=== PATIENT | female | born 1960 | race Caucasian/White ===

== ENCOUNTER 2016-07-18 09:48 | Day surgery (SDC) | payer OTHER ==
[2016-07-18] VITALS (9 sets, daily range): BP systolic 103–145; BP diastolic 53–88; PULSE 63–106; RESP 13–21; O2SAT 96–100
[~2016-07-18] VITALS: Ht 162.6 cm; Wt 109.9 kg
--- NOTE | 2016-07-18 08:50 | PCM.HPANE ---
Patient Data Surgeon Admitting Provider: Attending Provider:Olu Mead DO Primary Care Physician:Mitchell Other Provider:Gui William Anesthesia Reason for Visit Right De Quervains Tenosynovitis Ht/WT & BMI Height (Feet): 5 Height (Inches): 4 Weight (Kilograms): 110.767 Body Mass Index 41.00 Allergies Coded Allergies: Penicillins (Verified Allergy, Severe, FULL BODY RASH, 07/14/16) Past Anesthesia History Anesthesia History: Denies:: Anesthesia Reactions, Malignant Hyperthermia Diabetes History Hx Diabetes?: No MRSA MRSA: No Medications Reported Medications Cholecalciferol (Vitamin D3) (Vitamin D)1,000 Unit Capsule5,000 Unit PO DAILY # 1 BOTTLE Ref 0 07/14/16 Multivitamin (Multi Vitamin Daily)1 Each Tablet1 Each PO DAILY 30 Days Ref 0 07/14/16 Cyclosporine (Restasis)1 Each Droperette1 Each AFFECT_EYE BID 07/14/16 Carboxymethylcellulos/Glycerin (Refresh Optive Eye Drops)15 Ml Drops1-2 Drop AFFECT_EYE BID 07/14/16 History History of ENT Problems?: Yes HEENT History: Denies:: Glaucoma (HX DRY EYES) Other HEENT Pertinent History: S/P TONSILLECOMY,WISDOM TEETH EXTRACTIONS Hx of Heart Problems?: Yes Cardiovascular History: Positive for:: Irregular Heartbeat (PALPITATIONS-1 BOUT "RACING" HEART MONITOR-SNesha GHOSH) Valvular Heart Disease (MILD MR) Denies:: Heart Murmur (ECHO 03/2016 EF 60-65%) Hypertension (HYPERLIPIDEMIA) Hx of Respiratory Problem?: Yes Respiratory History: Denies:: Use of C-PAP Machine (SNORES) Hx Neurologic Problems?: Yes Neurological History: Positive for:: Headaches Hx of GI Problems?: Yes Other GI Pertinent History: OBESITY Hx of Problems?: No Female Hx: Denies:: Currently (S/P ENDOMETRIAL ABLATION) Skin History: Denies:: History Skin Disorders? Pressure Ulcers Hx Musculoskeletal Problems?: Yes Musculoskeletal History: Positive for:: Musculoskeletal Trauma (S/P LT ROTATOR CUFF RPR) Hx of Psycho/Social Problems?: No Hx Surgeries?: Yes (LT ROTATOR CUFF,TONSILS,ENDOMETRIAL ABLATION,WISDOM TEETH) Hx Any Other Health Problems?: Yes Other History: Denies:: Cancer Endocrine Disease Hospitalization Thyroid Disease History Blood Transfusions: Denies:: Blood Transfusions Hx Diabetes: No Hx Alcohol Use: Yes (OCCAS.)Have You Smoked inLast 12 mo: No Stop/Bang S-Snoring: Do You Snore Loudly: Yes T-Tired: feel tired, fatigued: No O-Obsered: Observed not breath: No P-Blood Pressure: treated: No B- Body Mass Index > 35 kg/m2: Yes A- Age over 50: Yes N- Neck Large Circumference: Yes G- Gender Male: No EULALIA Total Score: 4 Risk Assessment Category Category 1A: Patient has history of documented sleep apnea, and HAS NOT received any narcotic, sedative or anesthesia administration during this stay. Category 1B: Patient has history of documented sleep apnea, and HAS received any narcotic , sedative or anesthesia administration during this stay Category 2: Patient has SUSPECTED Obstructive Sleep Apnea, and HAS received any narcotic , sedative or anesthesia administration during this stay. Category 3: Patient has SUSPECTED Obstructive Sleep Apnea and HAS NOT received narcotic, sedative or anesthesia administration during this stay. Category 4: Outpatient in Procedural Areas with known sleep apnea or who screen positive for High Risk via the STOP/BANG questionnaire. Plan Impression Patient chart reviewed, patient interviewed and anesthestic plan with risks, benefits, and alternatives discussed, and informed consent obtained. Lisandro Haney DO Jul 18, 2016 08:50
[~2016-07-18 09:48] MED LIST: CARB15DR2 AFFECT_EYE; CHOL100045 PO; CYCL1DRO AFFECT_EYE; MULT-1018 PO
[2016-07-18] MEDS ORDERED: Ondansetron 2 mg/mL 2 mL Inj ONE (09:49)
[2016-07-18] MEDS ORDERED: Propofol 10,000 mCg/mL 20 mL Inj ONE (09:49)
[2016-07-18] MEDS ORDERED: Dexamethasone 4 mg/mL Inj ONE (09:49)
[2016-07-18] MEDS ORDERED: MetoCLOpramide 5 mg/mL 2 mL Inj ONE (09:49)
[2016-07-18] MEDS: Lactated Ringer's 1,000 ML IV SCH ×2 (10:03→11:22)
--- NOTE | 2016-07-18 11:14 | PCM.HPANE ---
Patient Data Surgeon Admitting Provider: Attending Provider:Olu Mead DO Primary Care Physician:Mitchell Other Provider:Gui William Anesthesia Reason for Visit Right De Quervains Tenosynovitis Ht/WT & BMI Height (Feet): 5 Height (Inches): 4 Weight (Kilograms): 109.9 Body Mass Index 41.00 Allergies Coded Allergies: Penicillins (Verified Allergy, Severe, FULL BODY RASH, 07/14/16) Past Anesthesia History Anesthesia History: Denies:: Anesthesia Reactions, Malignant Hyperthermia Diabetes History Hx Diabetes?: No MRSA MRSA: No Medications Home Meds Incl Beta Beto: No Reported Medications Cholecalciferol (Vitamin D3) (Vitamin D)1,000 Unit Capsule5,000 Unit PO DAILY # 1 BOTTLE Ref 0 07/14/16 Multivitamin (Multi Vitamin Daily)1 Each Tablet1 Each PO DAILY 30 Days Ref 0 07/14/16 Cyclosporine (Restasis)1 Each Droperette1 Each AFFECT_EYE BID 07/14/16 Carboxymethylcellulos/Glycerin (Refresh Optive Eye Drops)15 Ml Drops1-2 Drop AFFECT_EYE BID 07/14/16 History History of ENT Problems?: Yes HEENT History: Denies:: Glaucoma (HX DRY EYES) Other HEENT Pertinent History: S/P TONSILLECOMY,WISDOM TEETH EXTRACTIONS Hx of Heart Problems?: Yes Cardiovascular History: Positive for:: Irregular Heartbeat (PALPITATIONS-1 BOUT "RACING" HEART MONITOR-SNesha TACHCoretta) Valvular Heart Disease (MILD MR) Denies:: Heart Murmur (ECHO 03/2016 EF 60-65%) Hypertension (HYPERLIPIDEMIA) Hx of Respiratory Problem?: Yes Respiratory History: Positive for:: Use of C-PAP Machine (SNORES) Hx Neurologic Problems?: Yes Neurological History: Positive for:: Headaches Hx of GI Problems?: Yes Other GI Pertinent History: OBESITY Hx of Problems?: No Female Hx: Denies:: Currently (menopausal) Skin History: Denies:: History Skin Disorders? Pressure Ulcers Hx Musculoskeletal Problems?: Yes Musculoskeletal History: Positive for:: Musculoskeletal Trauma (S/P LT ROTATOR CUFF RPR) Hx of Psycho/Social Problems?: No Hx Surgeries?: Yes (LT ROTATOR CUFF,TONSILS,ENDOMETRIAL ABLATION,WISDOM TEETH) Hx Any Other Health Problems?: Yes Other History: Denies:: Cancer Endocrine Disease Hospitalization Thyroid Disease History Blood Transfusions: Denies:: Blood Transfusions Hx Diabetes: No Hx Alcohol Use: Yes (OCCAS.)Have You Smoked inLast 12 mo: No Stop/Bang Treated for Sleep Apnea?: No Do You Have a CPAP Machine?: No S-Snoring: Do You Snore Loudly: Yes T-Tired: feel tired, fatigued: No O-Obsered: Observed not breath: No P-Blood Pressure: treated: No B- Body Mass Index > 35 kg/m2: Yes A- Age over 50: Yes N- Neck Large Circumference: Yes G- Gender Male: No EULALIA Total Score: 4 EULALIA Risk Assessment: High Risk, =/>3 Yes Risk Assessment Category Category 1A: Patient has history of documented sleep apnea, and HAS NOT received any narcotic, sedative or anesthesia administration during this stay. Category 1B: Patient has history of documented sleep apnea, and HAS received any narcotic , sedative or anesthesia administration during this stay Category 2: Patient has SUSPECTED Obstructive Sleep Apnea, and HAS received any narcotic , sedative or anesthesia administration during this stay. Category 3: Patient has SUSPECTED Obstructive Sleep Apnea and HAS NOT received narcotic, sedative or anesthesia administration during this stay. Category 4: Outpatient in Procedural Areas with known sleep apnea or who screen positive for High Risk via the STOP/BANG questionnaire. Exam Exam Vital Signs Vital Signs Date Time Temp Pulse Resp B/P Pulse Ox O2 Delivery O2 Flow Rate FiO2 07/18/16 10:10 36.0 63 18 145/75 99 Room Air General Appearance: Oriented X3 HEENT/AIRWAY: MP 2 Lungs: Normal Air Movement Heart: Regular Rate/Rhythm Meds/Labs/Diagnostics Admission Meds Current Medications Lactated Ringer's (Lr) 1,000 ml @ 120 mls/hr [id number] IV Last administered on t 10:03; Start 07/18/16 at 05:00; Stop 07/18/16 at 13:19 Plan Impression Patient chart reviewed, patient interviewed and anesthestic plan with risks, benefits, and alternatives discussed, and informed consent obtained. NPO Status: 2200 07/17/16 ASA Physical Status: ASA3 Severe Disease Anesthetic Plan: GA Bene/Risks/Altern/Consents: Yes HP Complete Prior to Induction: Yes Jamison Ybarra MD Jul 18, 2016 11:14
[2016-07-18] MEDS ORDERED: Bupivacaine-MPF 0.5% W/EPI 30 mL Inj INFILTRATE ONE (11:55)
--- NOTE | 2016-07-18 12:21 | PCM.ANEP1 ---
Post Anesthesia Phase 1 PACU Phase 1 Assessment Vital Signs Vital Signs Date Time Temp Pulse Resp B/P Pulse Ox O2 Delivery O2 Flow Rate FiO2 07/18/16 10:10 36.0 63 18 145/75 99 Room Air Anesthetic Administered: GA Level of Alertness: Awake, talking Pain: No Nausea or Vomiting: No Lungs: Normal Air Movement Jamison Ybarra MD Jul 18, 2016 12:21
[2016-07-18] MEDS ORDERED: Lactated Ringer's 500 ML IV PRN (12:22)
[2016-07-18] MEDS ORDERED: Lactated Ringer's 1,000 ML IV SCH (12:22)
--- NOTE | 2016-07-18 12:22 | PCM.ANEP2 ---
Post Anesthesia Evaluation ASA/CMS Post Anesthesia VS in Patient's Normal Range?: Yes Resp Stable; Airway Patent?: Yes CV Function & Hydration Stable: Yes Mental Status Recovered?: Yes Pain control Satisfactory?: Yes N/V Control Satisfactory?: Yes Jamison Ybarra MD Jul 18, 2016 12:22
[2016-07-18] MEDS ORDERED: MetoCLOpramide 5 mg/mL 2 mL Inj IVPUSH PRN (12:25)
[2016-07-18] MEDS ORDERED: Ondansetron 2 mg/mL 2 mL Inj IVPUSH PRN (12:25)
[2016-07-18] MEDS ORDERED: fentaNYL-PF 50 mCg/mL 2 mL Inj IVPUSH PRN (12:25)
[2016-07-18] MEDS ORDERED: Labetalol 5 mg/mL 4 mL Inj IV PRN (12:25)
[2016-07-18] MEDS ORDERED: Dexamethasone 4 mg/mL Inj IVPUSH PRN (12:25)
[2016-07-18] MEDS ORDERED: HYDROmorphone 1 mg/mL Inj IVPUSH PRN (12:25)
[2016-07-18] MEDS ORDERED: EPHEDrine Sulfate 50 mg/mL Inj IVPUSH PRN (12:25)
[2016-07-18] MEDS ORDERED: Phenylephrine 10,000 mCg/mL Inj IVPUSH PRN (12:25)
[2016-07-18] MEDS ORDERED: HYDROcodone-APAP 5-325 mg Tablet PO PRN (12:30)
--- NOTE | 2016-07-18 13:23 | OP ---
[address] [address] OPERATIVE REPORT PATIENT: KHADRA STEWARD : 1960 MR#: [id number] ADMIT: 07/18/2016 JOB ID: [id number] DATE OF SURGERY: 07/18/2016 PREOPERATIVE DIAGNOSIS(ES): Right de Quervain tenosynovitis. POSTOPERATIVE DIAGNOSIS(ES): Right de Quervain tenosynovitis. PROCEDURE: Right first dorsal compartment release. SURGEON: Olu Mead DO. LINING STUFFER: Jocelin Johnson DO. INDICATIONS: The patient is a 56-year-old female with right hand de Quervain tenosynovitis who had failed conservative measures and wished to proceed with a first dorsal compartment release. We discussed the risks, benefits and possible complications of surgery. All questions were answered. She wished to proceed. PROCEDURE IN DETAIL: The patient was brought to the operating room. She was given an LMA general anesthetic. The right upper extremity was sterilely prepped and draped. A tourniquet was used for hemostasis. An incision was made obliquely from the radial styloid angling dorsal distal at a 45-degree angle. Dissection was carefully carried through subcutaneous tissue. The superficial radial nerve was identified and protected. The first dorsal compartment was identified and released in its entirety. There were three slips of tendon and each compartment was released in its entirety. There was a slight tendency for the tendons to dislocate with volar flexion and therefore, I elected to splint the patient postoperatively for a brief period of time. The wound was irrigated and then closed with interrupted nylon suture. Naropin was added as an adjunct local anesthetic and sterile dressings and volar splint were applied. Patient tolerated the procedure well. Blood loss was minimal. POSTOPERATIVE PROTOCOL: Will have the patient maintain her splint for 1-2 weeks. Ice and elevate, and follow up in two weeks for recheck with suture removal. She was given a prescription for Hewitt 5/325 for pain.
== END 2016-07-18 23:59 | disposition home or self-care (01) ==
LOC: SAS 09:48
PROVIDERS: ATTEND Orthopaedic Surgery
DX: M65.4 Radial styloid tenosynovitis [de Quervain] (principal); I10 Essential (primary) hypertension; E78.5 Hyperlipidemia, unspecified; E66.9 Obesity, unspecified; Z68.41 Body mass index [BMI] 40.0-44.9, adult
CPT/HCPCS: 25000; J1100; J2405; J2765; J7120